=== PATIENT | male | born 1945 | race Caucasian/White ===

== ENCOUNTER 2021-07-03 17:40 | Emergency (ER) | payer MEDICARE ==
[2021-07-03] MEDS ORDERED: Boostrix 0.5 ML (Tdap) VIAL ONE (18:19)
[2021-07-03] MEDS ORDERED: Bacitracin 1 PK ONE (18:19)
== END 2021-07-03 18:28 | disposition home or self-care (01) ==
LOC: BURERS 17:40
DX: S51.812A Laceration without foreign body of left forearm, initial encounter (principal); I10 Essential (primary) hypertension; I48.91 Unspecified atrial fibrillation; M19.90 Unspecified osteoarthritis, unspecified site; F17.290 Nicotine dependence, other tobacco product, uncomplicated; Z23 Encounter for immunization; Z86.73 Personal history of transient ischemic attack (TIA), and cerebral infarction without residual deficits; W26.8XXA Contact with other sharp object(s), not elsewhere classified, initial encounter
CPT/HCPCS: 90471; 90715